=== PATIENT | female | born 1970 | race Two or more races ===

== ENCOUNTER → 2018-07-23 | Outpatient (CLI) | payer MEDICARE, OTHER ==
[~2018-07-23] MED LIST: ALBU90OI INH; AMIT50 PO; AMOX1XR PO; AZIT250 PO; Augmentin 875-1 EACH PO; CEPH500 PO; CYCL10 PO; DIAZ10 PO; HYDACE5; HYDMOR8; IBUP600 PO; IBUP800; LAMO25; MEDR150I; MELO7.5 PO; META800; OXYACE5T PO; OXYACE7.5T PO; OXYC10ER; OXYC10ER PO; OXYC30 PO; Ocuflox5 ML RIGHTEYE; PRED20 PO; Percocet 5-3251 EACH PO; RXCYCL10 PO; RXOXYACE PO; SULTRIDS PO; TRAM50 PO; [UNRECOGNIZED DRUG - REMARK]
== END ==
LOC: LAB 17:18 → LAB SHORT 17:18
DX: N89.8 Other specified noninflammatory disorders of vagina (principal); Z20.2 Contact with and (suspected) exposure to infections with a predominantly sexual mode of transmission
CPT/HCPCS: 87070; 87077; 87147; 87186; 87205

== ENCOUNTER 2019-02-01 13:40 | Day surgery (SDC) | payer MEDICARE, OTHER ==
[~2019-02-01] VITALS: Ht 162.6 cm; Wt 58.1 kg
[~2019-02-01 13:40] MED LIST changes: +Depo-Prove150 MG/11 IM; +MEDICAL MARIJUANA
--- NOTE | 2019-02-01 16:57 | NUR ---
02/01/19 1657 Rahel Stephens PT. ALLERY TO VICODIN. DR. MERRILL WROTE RX FOR NORCO. PT. COULDN'T TAKE. DR. MERRILL NOTIFIED THAT PT ALLERY TO NORCO, VICODIN, & PERCOCET. PT. WANTING DILAUDID. PER . PT. TO JUST TAKE OTC MED FOR PAIN OR DISCOMFORT. PT. NOTIFIED OF THIS. PT OK WITH THIS.
== END 2019-02-01 16:35 | disposition home or self-care (01) ==
LOC: ORSCSDS 13:40
PROVIDERS: Orthopaedic Surgery
PROC: 01N50ZZ Release Median Nerve, Open Approach (ICD-10-PCS; principal; 2019-02-01 15:00)
DX: G56.02 Carpal tunnel syndrome, left upper limb (principal)
CPT/HCPCS: 84703; J0690; J2250; J3010; J7120

== ENCOUNTER → 2019-06-11 | Outpatient (CLI) | payer MEDICARE, OTHER ==
[2019-06-12 15:23] LABS: Candida species (DNA Probe) Negative (NEGATIVE); G. vaginalis (DNA Probe) Positive (NEGATIVE); T. vaginalis (DNA Probe) Negative (NEGATIVE)
== END ==
LOC: LAB SHORT 18:22 → LAB 18:22
PROVIDERS: Registered Nurse Community Health
DX: N76.0 Acute vaginitis (principal); Z20.2 Contact with and (suspected) exposure to infections with a predominantly sexual mode of transmission
CPT/HCPCS: 87480; 87510; 87660

== ENCOUNTER → 2019-08-27 | Outpatient (CLI) | payer MEDICARE, OTHER ==
[2019-08-29 15:11] LABS: HPV 16 Negative (Negative); HPV 18 Negative (Negative); HPV OTHER HR TYPES Negative (Negative)
== END ==
LOC: LAB 19:21 → LAB SHORT 19:21
PROVIDERS: Registered Nurse Community Health
DX: Z12.4 Encounter for screening for malignant neoplasm of cervix (principal); Z87.42 Personal history of other diseases of the female genital tract
CPT/HCPCS: 87624; G0123

== ENCOUNTER → 2021-04-13 | Outpatient (CLI) | payer MEDICARE, OTHER | LOC: LAB SHORT 17:42 → LAB 17:42 | DX: R30.9 Painful micturition, unspecified (principal) | CPT/HCPCS: 87077; 87086; 87186 ==

== ENCOUNTER → 2021-10-15 | Outpatient (CLI) | payer MEDICARE, OTHER ==
[2021-10-16 12:22] LABS: Candida species (DNA Probe) Negative (NEGATIVE); G. vaginalis (DNA Probe) Positive (NEGATIVE); T. vaginalis (DNA Probe) Negative (NEGATIVE)
== END ==
LOC: LAB 18:58 → LAB SHORT 18:58
PROVIDERS: Registered Nurse Community Health
DX: N89.9 Noninflammatory disorder of vagina, unspecified (principal); R30.9 Painful micturition, unspecified
CPT/HCPCS: 87086; 87480; 87510; 87660

== ENCOUNTER → 2021-11-23 | Outpatient (CLI) | payer MEDICARE, OTHER ==
[2021-11-24 10:18] LABS: Candida species (DNA Probe) Negative (NEGATIVE); G. vaginalis (DNA Probe) Positive (NEGATIVE); T. vaginalis (DNA Probe) Negative (NEGATIVE)
== END ==
LOC: LAB SHORT 15:25 → LAB 15:25
PROVIDERS: Registered Nurse Community Health
DX: N76.0 Acute vaginitis (principal); R30.9 Painful micturition, unspecified
CPT/HCPCS: 87077; 87086; 87186; 87480; 87510; 87660

== ENCOUNTER 2024-10-02 11:49 | Emergency (ER) | payer MEDICARE, OTHER ==
[~2024-10-02] VITALS: Ht 162.6 cm; Wt 53.1 kg
[2024-10-02] MEDS ORDERED: Ketorolac Tromethamine 15mg Vial IV ONE (12:00)
[2024-10-02 12:19] LABS: BASOPHILS ABSOLUTE AUTO 0.04 K/mm3 (0.00-0.23); BASOPHILS PERCENT AUTO 1 % (0-2); EOSINOPHILS ABSOLUTE AUTO 0.15 K/mm3 (0.00-0.68); EOSINOPHILS PERCENT AUTO 2 % (0-6); Hematocrit 38.5 % (33.0-51.0); Hemoglobin 13.3 g/dL (11.5-16.0); IMMATURE GRAN ABSOLUTE AUTO 0.01 K/mm3 (0.00-0.10); IMMATURE GRAN PERCENT AUTO 0 % (0-1); LYMPHOCYTES ABSOLUTE AUTO 2.69 K/mm3 (0.84-5.20); LYMPHOCYTES PERCENT AUTO 43 % (21-46); MONOCYTES ABSOLUTE AUTO 0.69 K/mm3 (0.16-1.47); MONOCYTES PERCENT AUTO 11 % (4-13); Mean Corpuscular HGB 30.2 pg (26.0-34.0); Mean Corpuscular HGB Conc 34.5 g/dL (31.5-36.5); Mean Corpuscular Volume 87 fL (80-100); NEUTROPHILS ABSOLUTE AUTO 2.75 K/mm3 (1.96-9.15); NEUTROPHILS PERCENT AUTO 43 % (41-73); Platelet Count 448 K/mm3 (150-400); RDW Coefficient Variation 12.5 % (11.7-14.2); RDW Standard Deviation 40.2 fL (35.1-46.3); Red Blood Cell Count 4.41 M/mm3 (3.80-5.20); White Blood Cell Count 6.33 K/mm3 (4.00-11.30)
[2024-10-02 12:35] LABS: C-REACTIVE PROTEIN, EXT RANGE 0.635 mg/dL (0.000-0.300)
[2024-10-02 12:37] LABS: Albumin, Blood 3.6 g/dL (3.4-5.0); Albumin/Globulin Ratio 0.9 (0.8-1.8); Bilirubin, Total 0.3 mg/dL (0.1-1.0); Bun/Creatinine Ratio 21.2 (12.0-20.0); Calcium, Blood 9.4 mg/dL (8.5-10.1); Creatinine, Blood 0.61 mg/dL (0.40-1.00); Globulin, Blood 4.2 g/dL (2.2-4.0); Potassium, Blood 4.4 mmol/L (3.5-5.5); Total Protein, Blood 7.8 g/dL (6.4-8.2)
[2024-10-02] MEDS ORDERED: TraMADol HCl 50 MG Tab PO ONE (15:20)
[2024-10-02] MEDS ORDERED: TRAM50 PO (16:47)
[2024-10-02 16:55] VITALS: BP 135/85
== END 2024-10-02 16:56 | disposition home or self-care (01) ==
LOC: ER 11:49
PROVIDERS: Physician Assistant
DX: S82.141A Displaced bicondylar fracture of right tibia, initial encounter for closed fracture (principal); E87.1 Hypo-osmolality and hyponatremia; Z88.8 Allergy status to other drugs, medicaments and biological substances; Z88.5 Allergy status to narcotic agent; Z87.891 Personal history of nicotine dependence; Z59.89 Other problems related to housing and economic circumstances; X50.1XXA Overexertion from prolonged static or awkward postures, initial encounter; S89.91XA Unspecified injury of right lower leg, initial encounter; M17.11 Unilateral primary osteoarthritis, right knee; M25.561 Pain in right knee; M25.461 Effusion, right knee
CPT/HCPCS: 29505; 73560-LT; 73562-RT; 73701; 80053; 85025; 85651; 86140; 87070; 87075; 87205; 89051; 89060; 93971; 99284-25; A9270; Q9967

== ENCOUNTER 2025-04-14 09:18 | Day surgery (SDC) | payer MEDICARE, OTHER ==
[~2025-04-14] VITALS: Ht 157.5 cm; Wt 53.6 kg
[2025-04-14] VITALS (10 sets, daily range): BP systolic 93–126; BP diastolic 51–83
[~2025-04-14 09:18] MED LIST changes: +CeFAZolin Sodium 2,000 MG in NS 100 ML IV SCH; +Chlorhexidine Mouth Care 15 ML UDC MT SCH; +Ropivacaine 0.5% HCl/Pf 123.125 MG,EPINEPHrine HCL 0.25 MG,Ketorolac Tromethamine 15 MG... INFIL SCH; +Tranexamic Acid 100 ML IV SCH
[2025-04-14] MEDS ORDERED: Morphine Sulfate 4 MG/1 ML Injection IV PRN (10:20)
[2025-04-14] MEDS ORDERED: Metoclopramide HCl 5MG / ML 2ML Vial IV PRN ×2 (10:20→11:55)
[2025-04-14] MEDS ORDERED: Ondansetron HCl 2 MG / ML 2ML Vial IV PRN ×2 (10:20→11:55)
[2025-04-14] MEDS ORDERED: FentaNYL Citrate 50 MCG/ML 2 ML Injection IV PRN ×2 (10:20)
[2025-04-14] MEDS ORDERED: HYDROmorphone HCl/Pf 1MG SYR IV PRN ×2 (10:25→11:55)
--- NOTE | 2025-04-14 10:29 | NUR ---
History, Chart, Medications and Allergies reviewed before start of procedure. Pre-Op teaching done. Pt verbalizes understanding. Patient confirms NPO status and agrees with scheduled surgery. PT STATES UPPER DENTURES ARE GLUED IN AND DO NOT COME OUT.
--- NOTE | 2025-04-14 10:32 | NUR ---
PT REFUSED TO TAKE PRE OP TYLENOL AND OXYCOTIN SHE STATES "I DON'T TAKE MEDICATION, ONLY HERBAL SUPPLEMENTS."
[2025-04-14] MEDS ORDERED: Ondansetron HCl 2 MG / ML 2ML Vial ONE ×2 (11:32→12:24)
[2025-04-14] MEDS ORDERED: Metoclopramide HCl 5MG / ML 2ML Vial ONE ×2 (11:32→12:24)
[2025-04-14] MEDS ORDERED: Midazolam HCl 1MG / ML 2ML Vial ONE ×2 (11:32→12:25)
[2025-04-14] MEDS ORDERED: Magnesium Sulfate 500 MG / ML 2ML Vial ONE (11:34)
[2025-04-14] MEDS ORDERED: FLU VACC TS2025-26(6MOS UP)/PF 45 MCG/0.5 ML SYRINGE IM SCH (11:50)
[2025-04-14] MEDS ORDERED: Magnesium Hydroxide Conc 10 ML UDC PO PRN (11:55)
[2025-04-14] MEDS ORDERED: HYDROmorphone HCl/Pf 1MG SYR ONE (12:34)
[2025-04-14] MEDS ORDERED: Ketorolac Tromethamine 15mg Vial IV SCH (18:00)
[2025-04-14] MEDS ORDERED: ASPI81CH PO (18:36)
[2025-04-14] MEDS ORDERED: ACET500 PO (18:36)
[2025-04-14] MEDS ORDERED: DOCU100 PO (18:36)
[2025-04-14] MEDS ORDERED: OXYC5 PO (18:37)
--- NOTE | 2025-04-14 18:43 | NUR ---
SHIFT SUMMARY PATIENT IS POD TODAY FOR L KNEE, DRESSING C/D/I. UP TO BSC 1 ASSIST GB, VOIDS WELL. DOES NOT GET TO DO PT HER LEGS WERE STILL NUMB. PATIENT DOES WANT TO DC HOME. HAS PAIN MEDICATION SENT TO PHARMACY. DC PAPER WORK DONE READY FOR INSTRUCTIONS AND CALL MADE TO RIDE HOME. USES CALL LIGHT REPORT MECHANICAL TEST ENGINEER RN.
--- NOTE | 2025-04-14 19:22 | NUR ---
DISCHARGE SUMMARY PT ADMITTED FOR L TOTAL KNEE ARTHROPLASTY. VSS. HRR. DRESSING C/D/I. DISCHARGE EDUCATION VERBALLY PROVIDED TO PT AND PRINTED INFORMATION PROVIDED FOR EDUCATION REINFORCEMENT. PT DEMONSTRATED UNDERSTANDING OF EDUCATION. PT ESCORTED OUT OF HOSPITAL VIA WHEELCHAIR.
[2025-04-14] MEDS ORDERED: CeFAZolin Sodium 2,000 MG in NS 100 ML IV SCH (20:00)
== END 2025-04-14 19:17 | disposition home or self-care (01) ==
LOC: ORSCMMR 09:18 → ORD 13:30 → SURS 14:10 → ORSCMMR 19:17
PROVIDERS: Orthopaedic Surgery
PROC: 8E0Y0CZ Robotic Assisted Procedure of Lower Extremity, Open Approach (ICD-10-PCS; principal; 2025-04-14 10:30)
PROC: 0SRD0JA Replacement of Left Knee Joint with Synthetic Substitute, Uncemented, Open Approach (ICD-10-PCS; principal; 2025-04-14 10:30)
DX: M17.12 Unilateral primary osteoarthritis, left knee (principal)
CPT/HCPCS: 27447; 0055T; 73560-LT; A9270; C1713; C1776; J0166; J0690; J0735; J1171; J1885; J2250; J2405; J2704; J2765; J2795; J3475; J7120

== ENCOUNTER 2025-04-23 18:06 | Emergency (ER) | payer MEDICARE, OTHER ==
[~2025-04-23] VITALS: Ht 157.5 cm; Wt 56.2 kg
[~2025-04-23 18:06] MED LIST changes: +ACET500 PO; +ASPI81CH PO; -CeFAZolin Sodium 2,000 MG in NS 100 ML IV SCH; -Chlorhexidine Mouth Care 15 ML UDC MT SCH; +DOCU100 PO; +OXYC5 PO; -Ropivacaine 0.5% HCl/Pf 123.125 MG,EPINEPHrine HCL 0.25 MG,Ketorolac Tromethamine 15 MG... INFIL SCH; -Tranexamic Acid 100 ML IV SCH
[2025-04-23 18:41] VITALS: BP 130/71
--- NOTE | 2025-04-24 00:08 | NUR ---
REVIEWED INFORMATION R/T RECORDS REQUEST FROM [facility] WHERE THE PT CURRENTLY IS.
== END 2025-04-23 19:05 | disposition left against medical advice (07) ==
LOC: ER 18:06
DX: Z53.21 Procedure and treatment not carried out due to patient leaving prior to being seen by health care provider (principal)
CPT/HCPCS: 99281